=== PATIENT | male | born 1990 ===

== ENCOUNTER 2017-12-09 01:04 | Emergency (ER) | payer SELFPAY ==
[~2017-12-09] VITALS: Ht 170.2 cm; Wt 89.8 kg
[2017-12-09 01:10] VITALS: Ht 170.2 cm; Wt 89.8 kg
[2017-12-09 02:04] VITALS: BP 115/63
== END 2017-12-09 02:04 | disposition home or self-care (01) ==
LOC: ED 01:04
DX: F41.8 Other specified anxiety disorders (principal)